=== PATIENT | male | born 1950 | race Caucasian/White ===

== ENCOUNTER 2021-06-09 16:01 | Inpatient (IN) ==
[2021-06-09] MEDS ORDERED: DEXAMETHASONE 4 MG/1 ML VIAL IV STA (17:03)
[2021-06-09] MEDS ORDERED: cefTRIAXone 1,000 MG in SODIUM CHLORIDE 0.9% 100 ML IV STA (17:03)
[2021-06-09] MEDS ORDERED: SODIUM CHLORIDE 0.9% 1,000 ML IV STA (17:03)
[2021-06-09 17:27] LABS: Basophils % 0.2 % (0.0-0.8); Hematocrit 41.8 VOL% (42.0-52.0); Hemoglobin 13.8 GM/DL (14.0-18.0); Immature Granulocytes % 0.8 %; Immature Granulocytes Absolute 0.04 #; Lymphocytes # 0.9 10*3/uL (1.4-4.0); Lymphocytes % 19.1 % (21.2-54.2); Mean Corpuscular Volume 87.4 FL (87-102); Mean Platelet Volume 10.8 FL (9.6-12.0); Monocytes % 9.7 % (1.7-12.7); Neutrophils % 70.2 % (38.7-73.9); Platelet Count 170 T/CUMM (130-400); Red Blood Count 4.78 MC/CUMM (3.8-5.5); Red Cell Distribution Width 13.7 % (9.3-17.3); White Blood Count 4.7 T/CUMM (4-12)
[2021-06-09 17:55] LABS: Alanine Aminotransferase 44 U/L (16-61); Albumin 2.9 G/DL (3.4-5.0); Alkaline Phosphatase 54 U/L (45-117); Aspartate Amino Transferase 60 U/L (0-37); Blood Urea Nitrogen 17 MG/DL (7-18); Calcium 8.4 MG/DL (8.5-10.1); Carbon Dioxide 28 MMOL/L (21-32); Estimated Glom Filtration Rate 101 ML/MIN; Ferritin 272.6 ng/ml (26-388); Glucose 161 MG/DL (74-106); Potassium 3.2 MMOL/L (3.5-5.1); Sodium 136 MMOL/L (136-145); Total Protein 6.8 G/DL (6.4-8.2)
[2021-06-09 18:41] LABS: Bilirubin,Urine Negative (Negative); Blood, Urine Negative (Negative); Glucose,Urine (UA) 50 mg/dL (Negative); Ketones,Urine 20 mg/dL (Negative); Mucus,Urine Moderate /LPF (Occasional); Nitrite,Urine Negative (Negative); Protein,Urine 30 MG/DL; RBC,Urine <1 /HPF (0-4); Squamous Epithelial Cell,Urine Occasional /HPF (0-10); Urine Appearance CLEAR (Clear); Urine Color Amber (Yellow); Urine Specific Gravity 1.027 (1.001-1.035)
[2021-06-09 18:47] LABS: Barbiturates Screen,Urine Negative (Negative); Benzodiazepines Screen,Urine Negative (Negative); Cannabinoid Screen,Urine Negative (Negative); Opiate Screen,Urine Negative (Negative); Phencyclidine Screen,Urine Negative (Negative)
[2021-06-09 18:58] LABS: Lactic Acid 1.3 MMOL/L (0.4-2.0)
[2021-06-09] MEDS ORDERED: DEXTROSE 50% 25 GM/50 ML VIAL IV PRN (19:02)
[2021-06-09] MEDS ORDERED: GLUCAGON 1 MG VIAL IM PRN (19:02)
[2021-06-09] MEDS ORDERED: AZITHROMYCIN INJ 500 MG in SODIUM CHLORIDE 0.9% 250 ML IV ONE (21:00)
[2021-06-09] MEDS: ASCORBIC ACID 500 MG TABLET PO SCH (21:42)
[2021-06-09] MEDS: METOPROLOL TARTRATE 25 MG TABLET PO SCH (21:42)
[2021-06-09] MEDS: ENOXAPARIN 30 MG/0.3 ML SYRINGE SUBCUT SCH (21:42)
[2021-06-10 06:27] LABS: Hematocrit 38.2 VOL% (42.0-52.0); Hemoglobin 12.6 GM/DL (14.0-18.0); Immature Granulocytes % 0.6 %; Immature Granulocytes Absolute 0.02 #; Lymphocytes # 0.6 10*3/uL (1.4-4.0); Lymphocytes % 19.8 % (21.2-54.2); Mean Platelet Volume 10.1 FL (9.6-12.0); Monocytes % 8.4 % (1.7-12.7); Neutrophils % 71.2 % (38.7-73.9); Platelet Count 175 T/CUMM (130-400); Red Blood Count 4.34 MC/CUMM (3.8-5.5); Red Cell Distribution Width 13.7 % (9.3-17.3); White Blood Count 3.1 T/CUMM (4-12)
[2021-06-10 06:52] LABS: Hypochromasia 1+; Lymphocytes 12 % (20-55); Microcytosis 1+; Platelet Estimate Adequate; Segmented Neutrophils 80 % (50-85); Total Cells Counted 100
[2021-06-10 07:14] LABS: Albumin 2.4 G/DL (3.4-5.0); Bilirubin,Total 0.7 MG/DL (0.20-1.00); Calcium 8.1 MG/DL (8.5-10.1); Ferritin 282.8 ng/ml (26-388); Osmolality,Calculated 281.7 MOS/KG (273-304); Potassium 4.1 MMOL/L (3.5-5.1); Risk Ratio 3.73; Thyroid Stimulating Hormone 0.253 uIU/ml (0.358-3.74); Total Protein 6.1 G/DL (6.4-8.2); VLDL Cholesterol 20.6 MG/DL
[2021-06-10] MEDS: DEXAMETHASONE 4 MG/1 ML VIAL IV SCH (10:45)
[2021-06-10] MEDS: METOPROLOL TARTRATE 25 MG TABLET PO SCH ×2 (10:45→21:07)
[2021-06-10] MEDS: ENOXAPARIN 30 MG/0.3 ML SYRINGE SUBCUT SCH ×2 (10:45→21:07)
[2021-06-10] MEDS: ASCORBIC ACID 500 MG TABLET PO SCH ×2 (10:50→21:07)
[2021-06-10] MEDS: cefTRIAXone 1,000 MG in SODIUM CHLORIDE 0.9% 100 ML IV SCH (10:50)
[2021-06-10] MEDS: CHOLECALCIFEROL 1,000 UNIT TABLET PO SCH (10:50)
[2021-06-10] MEDS: ZINC GLUCONATE 50 MG TABLET PO SCH (10:50)
[2021-06-10] MEDS ORDERED: REMDESIVIR 200 MG in SODIUM CHLORIDE 0.9% 210 ML IV ONE (11:00)
[2021-06-10] MEDS: SIMVASTATIN 20 MG TABLET PO SCH (21:07)
[2021-06-11] MEDS: ASPIRIN CHEW 81 MG TABLET PO SCH (09:00)
[2021-06-11] MEDS: cefTRIAXone 1,000 MG in SODIUM CHLORIDE 0.9% 100 ML IV SCH (09:00)
[2021-06-11] MEDS: ZINC GLUCONATE 50 MG TABLET PO SCH (09:00)
[2021-06-11] MEDS: METOPROLOL TARTRATE 25 MG TABLET PO SCH ×2 (09:00→21:45)
[2021-06-11] MEDS: CHOLECALCIFEROL 1,000 UNIT TABLET PO SCH (09:00)
[2021-06-11] MEDS: ASCORBIC ACID 500 MG TABLET PO SCH ×2 (09:00→21:45)
[2021-06-11] MEDS: DEXAMETHASONE 4 MG/1 ML VIAL IV SCH (09:01)
[2021-06-11] MEDS: ENOXAPARIN 30 MG/0.3 ML SYRINGE SUBCUT SCH ×2 (09:01→21:45)
[2021-06-11] MEDS: methylPREDNISolone SOD SUC 40 MG/1 ML VIAL IV SCH ×2 (11:20→21:47)
[2021-06-11] MEDS: REMDESIVIR 100 MG in SODIUM CHLORIDE 0.9% 100 ML IV SCH (11:20)
[2021-06-11] MEDS: ALBUTEROL INHALER 18 GM INH SCH ×2 (12:13→23:09)
[2021-06-11] MEDS: SIMVASTATIN 20 MG TABLET PO SCH (21:45)
[2021-06-12] MEDS: ALBUTEROL INHALER 18 GM INH SCH ×4 (02:02→18:22)
[2021-06-12] MEDS: METOPROLOL TARTRATE 25 MG TABLET PO SCH ×2 (09:12→21:10)
[2021-06-12] MEDS: CHOLECALCIFEROL 1,000 UNIT TABLET PO SCH (09:12)
[2021-06-12] MEDS: CITALOPRAM 20 MG TABLET PO SCH (09:12)
[2021-06-12] MEDS: ASCORBIC ACID 500 MG TABLET PO SCH ×2 (09:12→21:10)
[2021-06-12] MEDS: ZINC GLUCONATE 50 MG TABLET PO SCH (09:12)
[2021-06-12] MEDS: cefTRIAXone 1,000 MG in SODIUM CHLORIDE 0.9% 100 ML IV SCH (09:13)
[2021-06-12] MEDS: methylPREDNISolone SOD SUC 40 MG/1 ML VIAL IV SCH ×2 (09:13→21:10)
[2021-06-12] MEDS: ENOXAPARIN 30 MG/0.3 ML SYRINGE SUBCUT SCH ×2 (09:13→21:10)
[2021-06-12] MEDS: ASPIRIN CHEW 81 MG TABLET PO SCH (09:13)
[2021-06-12] MEDS: REMDESIVIR 100 MG in SODIUM CHLORIDE 0.9% 100 ML IV SCH (10:38)
[2021-06-12] MEDS: MAGNESIUM CHLORIDE 64 MG TABLET PO SCH (10:38)
[2021-06-12] MEDS: SIMVASTATIN 20 MG TABLET PO SCH (21:10)
[2021-06-12] MEDS: INSULIN REGULAR 100 UNIT/ML SUBCUT SCH (23:16)
[2021-06-13] MEDS: ALBUTEROL INHALER 18 GM INH SCH ×4 (01:28→21:40)
[2021-06-13] MEDS: LORazepam 2 MG/1 ML VIAL IV PRN ×2 (03:17→23:26)
[2021-06-13 05:09] LABS: Basophils % 0.1 % (0.0-0.8); Hematocrit 39.7 VOL% (42.0-52.0); Immature Granulocytes % 0.9 %; Immature Granulocytes Absolute 0.07 #; Lymphocytes # 0.8 10*3/uL (1.4-4.0); Lymphocytes % 10.2 % (21.2-54.2); Mean Corpuscular HGB Conc 32.7 GM/DL (32-36); Mean Corpuscular Volume 90.4 FL (87-102); Mean Platelet Volume 11.1 FL (9.6-12.0); Monocytes % 8.8 % (1.7-12.7); Platelet Count 223 T/CUMM (130-400); Red Blood Count 4.39 MC/CUMM (3.8-5.5); Red Cell Distribution Width 13.5 % (9.3-17.3); White Blood Count 7.4 T/CUMM (4-12)
[2021-06-13 05:34] LABS: Calcium 8.8 MG/DL (8.5-10.1); Osmolality,Calculated 291.4 MOS/KG (273-304); Potassium 3.7 MMOL/L (3.5-5.1)
[2021-06-13 07:16] LABS: Lymphocytes 7 % (20-55); Segmented Neutrophils 82 % (50-85); Total Cells Counted 100
[2021-06-13 07:17] LABS: Platelet Estimate Adequate
[2021-06-13] MEDS ORDERED: INSULIN REGULAR 100 UNIT/ML SUBCUT SCH (07:30)
[2021-06-13] MEDS: ZINC GLUCONATE 50 MG TABLET PO SCH (09:19)
[2021-06-13] MEDS: MAGNESIUM CHLORIDE 64 MG TABLET PO SCH (09:19)
[2021-06-13] MEDS: CHOLECALCIFEROL 1,000 UNIT TABLET PO SCH (09:19)
[2021-06-13] MEDS: ASCORBIC ACID 500 MG TABLET PO SCH ×2 (09:19→21:41)
[2021-06-13] MEDS: CITALOPRAM 20 MG TABLET PO SCH (09:19)
[2021-06-13] MEDS: ASPIRIN CHEW 81 MG TABLET PO SCH (09:19)
[2021-06-13] MEDS: INSULIN REGULAR 100 UNIT/ML SUBCUT SCH ×4 (09:20→21:40)
[2021-06-13] MEDS: cefTRIAXone 1,000 MG in SODIUM CHLORIDE 0.9% 100 ML IV SCH (09:20)
[2021-06-13] MEDS: ENOXAPARIN 30 MG/0.3 ML SYRINGE SUBCUT SCH ×2 (09:20→21:41)
[2021-06-13] MEDS: methylPREDNISolone SOD SUC 40 MG/1 ML VIAL IV SCH ×2 (09:21→21:41)
[2021-06-13 09:32] LABS: ABG Base Excess 7.5 MMOL/L (-2.5-2.5); ABG HCO3 31.4 MMOL/L (20-26); ABG Oxygen Saturation 91.5 % (95-100); ABG PCO2 41.7 MM HG (35-48); ABG PH 7.495 (7.35-7.45); ABG PO2 64.5 MM HG (80-95); ABG TCO2 32.7 MMOL/L (23-27)
[2021-06-13] MEDS: METOPROLOL TARTRATE 25 MG TABLET PO SCH ×2 (09:36→21:41)
[2021-06-13] MEDS ORDERED: MAGNESIUM SULF RIDER 2 GM/50 ML PREMIX IV PRN (10:00)
[2021-06-13] MEDS ORDERED: MAGNESIUM SULF RIDER 4 GM/100 ML PREMIX IV PRN (10:00)
[2021-06-13] MEDS: REMDESIVIR 100 MG in SODIUM CHLORIDE 0.9% 100 ML IV SCH (12:17)
[2021-06-13] MEDS: SIMVASTATIN 20 MG TABLET PO SCH (21:41)
[2021-06-14] MEDS: ALBUTEROL INHALER 18 GM INH SCH ×4 (02:19→21:01)
[2021-06-14] MEDS: ENOXAPARIN 30 MG/0.3 ML SYRINGE SUBCUT SCH ×2 (10:00→21:01)
[2021-06-14] MEDS: MAGNESIUM CHLORIDE 64 MG TABLET PO SCH (10:01)
[2021-06-14] MEDS: CHOLECALCIFEROL 1,000 UNIT TABLET PO SCH (10:01)
[2021-06-14] MEDS: cefTRIAXone 1,000 MG in SODIUM CHLORIDE 0.9% 100 ML IV SCH (10:01)
[2021-06-14] MEDS: ZINC GLUCONATE 50 MG TABLET PO SCH (10:01)
[2021-06-14] MEDS: methylPREDNISolone SOD SUC 40 MG/1 ML VIAL IV SCH ×2 (10:01→21:05)
[2021-06-14] MEDS: METOPROLOL TARTRATE 25 MG TABLET PO SCH ×2 (10:01→21:01)
[2021-06-14] MEDS: ASCORBIC ACID 500 MG TABLET PO SCH ×2 (10:02→21:01)
[2021-06-14] MEDS: CITALOPRAM 20 MG TABLET PO SCH (10:02)
[2021-06-14] MEDS: ASPIRIN CHEW 81 MG TABLET PO SCH (10:02)
[2021-06-14] MEDS: INSULIN REGULAR 100 UNIT/ML SUBCUT SCH ×4 (10:11→21:01)
[2021-06-14] MEDS: REMDESIVIR 100 MG in SODIUM CHLORIDE 0.9% 100 ML IV SCH (11:21)
[2021-06-14] MEDS ORDERED: INSULIN NPH 100 UNIT/ML SUBCUT ONE (12:03)
[2021-06-14] MEDS ORDERED: INSULIN GLARGINE 100 UNIT/ML SUBCUT SCH (21:00)
[2021-06-14] MEDS: SIMVASTATIN 20 MG TABLET PO SCH (21:01)
[2021-06-14] MEDS: LORazepam 2 MG/1 ML VIAL IV PRN (21:51)
[2021-06-15] MEDS: ALBUTEROL INHALER 18 GM INH SCH ×3 (01:52→13:55)
[2021-06-15] MEDS: cefTRIAXone 1,000 MG in SODIUM CHLORIDE 0.9% 100 ML IV SCH (10:26)
[2021-06-15] MEDS: CHOLECALCIFEROL 1,000 UNIT TABLET PO SCH (10:27)
[2021-06-15] MEDS: ZINC GLUCONATE 50 MG TABLET PO SCH (10:27)
[2021-06-15] MEDS: MAGNESIUM CHLORIDE 64 MG TABLET PO SCH (10:27)
[2021-06-15] MEDS: METOPROLOL TARTRATE 25 MG TABLET PO SCH (10:27)
[2021-06-15] MEDS: ASCORBIC ACID 500 MG TABLET PO SCH ×2 (10:27→21:40)
[2021-06-15] MEDS: ASPIRIN CHEW 81 MG TABLET PO SCH (10:27)
[2021-06-15] MEDS: CITALOPRAM 20 MG TABLET PO SCH (10:27)
[2021-06-15] MEDS: ENOXAPARIN 30 MG/0.3 ML SYRINGE SUBCUT SCH ×2 (10:28→21:40)
[2021-06-15] MEDS: methylPREDNISolone SOD SUC 40 MG/1 ML VIAL IV SCH (10:28)
[2021-06-15] MEDS: INSULIN REGULAR 100 UNIT/ML SUBCUT SCH ×4 (10:28→21:38)
[2021-06-15] MEDS ORDERED: FUROSEMIDE 40 MG/4 ML VIAL IV ONE (11:14)
[2021-06-15] MEDS ORDERED: ALBUTEROL INHALER 18 GM INH PRN (17:53)
[2021-06-15] MEDS ORDERED: POTASSIUM CHLORIDE 20 MEQ TABLET PO ONE (17:57)
[2021-06-15] MEDS: LORazepam 2 MG/1 ML VIAL IV PRN (18:26)
[2021-06-15] MEDS ORDERED: METOPROLOL TARTRATE 25 MG TABLET PO SCH (21:00)
[2021-06-15] MEDS ORDERED: INSULIN GLARGINE 100 UNIT/ML SUBCUT SCH (21:00)
[2021-06-15] MEDS: predniSONE 20 MG TABLET PO SCH (21:40)
[2021-06-15] MEDS: SIMVASTATIN 20 MG TABLET PO SCH (21:40)
[2021-06-16 04:31] LABS: Basophils % 0.3 % (0.0-0.8); Hematocrit 40.4 VOL% (42.0-52.0); Hemoglobin 13.6 GM/DL (14.0-18.0); Immature Granulocytes % 1.3 %; Lymphocytes # 0.7 10*3/uL (1.4-4.0); Lymphocytes % 9.2 % (21.2-54.2); Mean Corpuscular HGB Conc 33.7 GM/DL (32-36); Mean Corpuscular Volume 86.9 FL (87-102); Mean Platelet Volume 11.5 FL (9.6-12.0); Neutrophils % 82.2 % (38.7-73.9); Platelet Count 338 T/CUMM (130-400); Red Blood Count 4.65 MC/CUMM (3.8-5.5); Red Cell Distribution Width 13.2 % (9.3-17.3); White Blood Count 7.5 T/CUMM (4-12)
[2021-06-16 05:06] LABS: Calcium 9.2 MG/DL (8.5-10.1); Osmolality,Calculated 298.4 MOS/KG (273-304); Potassium 3.7 MMOL/L (3.5-5.1)
[2021-06-16] MEDS ORDERED: POTASSIUM CHLORIDE 20 MEQ TABLET PO ONE (09:00)
[2021-06-16] MEDS ORDERED: METOPROLOL TARTRATE 50 MG TABLET PO SCH (09:00)
[2021-06-16] MEDS: predniSONE 20 MG TABLET PO SCH ×2 (09:52→20:41)
[2021-06-16] MEDS: VERAPAMIL SR 120 MG TABLET PO SCH ×2 (09:52→20:40)
[2021-06-16] MEDS: MAGNESIUM CHLORIDE 64 MG TABLET PO SCH (09:52)
[2021-06-16] MEDS: METOPROLOL TARTRATE 25 MG TABLET PO SCH ×2 (09:52→20:41)
[2021-06-16] MEDS: ASCORBIC ACID 500 MG TABLET PO SCH ×2 (09:52→20:41)
[2021-06-16] MEDS: cefTRIAXone 1,000 MG in SODIUM CHLORIDE 0.9% 100 ML IV SCH (09:52)
[2021-06-16] MEDS: INSULIN REGULAR 100 UNIT/ML SUBCUT SCH ×4 (09:52→20:41)
[2021-06-16] MEDS: CITALOPRAM 20 MG TABLET PO SCH (09:52)
[2021-06-16] MEDS: ZINC GLUCONATE 50 MG TABLET PO SCH (09:52)
[2021-06-16] MEDS: ENOXAPARIN 30 MG/0.3 ML SYRINGE SUBCUT SCH ×2 (09:52→20:41)
[2021-06-16] MEDS: ASPIRIN CHEW 81 MG TABLET PO SCH (09:52)
[2021-06-16] MEDS: CHOLECALCIFEROL 1,000 UNIT TABLET PO SCH (09:52)
[2021-06-16] MEDS: ROSUVASTATIN 20 MG TABLET PO SCH (20:40)
[2021-06-16] MEDS: INSULIN GLARGINE 100 UNIT/ML SUBCUT SCH (20:40)
[2021-06-16] MEDS: LORazepam 2 MG/1 ML VIAL IV PRN (22:54)
[2021-06-17 05:36] LABS: Basophils % 0.1 % (0.0-0.8); Eosinophils % 0.4 % (0.00-10.9); Hematocrit 39.6 VOL% (42.0-52.0); Immature Granulocytes % 1.8 %; Immature Granulocytes Absolute 0.14 #; Lymphocytes # 0.9 10*3/uL (1.4-4.0); Lymphocytes % 11.1 % (21.2-54.2); Mean Corpuscular HGB Conc 32.8 GM/DL (32-36); Mean Platelet Volume 11.1 FL (9.6-12.0); Monocytes % 6.1 % (1.7-12.7); Neutrophils % 80.5 % (38.7-73.9); Platelet Count 355 T/CUMM (130-400); Red Cell Distribution Width 13.4 % (9.3-17.3); White Blood Count 7.8 T/CUMM (4-12)
[2021-06-17 06:05] LABS: Calcium 8.7 MG/DL (8.5-10.1); Osmolality,Calculated 293.4 MOS/KG (273-304); Potassium 3.9 MMOL/L (3.5-5.1)
[2021-06-17 06:19] LABS: Ferritin 146.7 ng/mL (26-388)
[2021-06-17] MEDS ORDERED: METOPROLOL TARTRATE 25 MG TABLET PO ONE (09:21)
[2021-06-17] MEDS: ENOXAPARIN 30 MG/0.3 ML SYRINGE SUBCUT SCH ×2 (10:16→21:20)
[2021-06-17] MEDS: MAGNESIUM CHLORIDE 64 MG TABLET PO SCH (10:16)
[2021-06-17] MEDS: INSULIN REGULAR 100 UNIT/ML SUBCUT SCH ×4 (10:16→21:20)
[2021-06-17] MEDS: VERAPAMIL SR 120 MG TABLET PO SCH ×2 (10:16→21:21)
[2021-06-17] MEDS: ZINC GLUCONATE 50 MG TABLET PO SCH (10:17)
[2021-06-17] MEDS: CITALOPRAM 20 MG TABLET PO SCH (10:17)
[2021-06-17] MEDS: CHOLECALCIFEROL 1,000 UNIT TABLET PO SCH (10:17)
[2021-06-17] MEDS: ASCORBIC ACID 500 MG TABLET PO SCH ×2 (10:17→21:22)
[2021-06-17] MEDS: predniSONE 20 MG TABLET PO SCH ×2 (10:18→21:25)
[2021-06-17] MEDS: METOPROLOL TARTRATE 25 MG TABLET PO SCH (10:38)
[2021-06-17] MEDS: ASPIRIN CHEW 81 MG TABLET PO SCH (10:38)
[2021-06-17] MEDS: METOPROLOL TARTRATE 50 MG TABLET PO SCH (21:21)
[2021-06-17] MEDS: INSULIN GLARGINE 100 UNIT/ML SUBCUT SCH (21:21)
[2021-06-17] MEDS: ROSUVASTATIN 20 MG TABLET PO SCH (21:22)
[2021-06-18 06:31] LABS: Basophils % 0.1 % (0.0-0.8); Eosinophils % 0.2 % (0.00-10.9); Hematocrit 40.7 VOL% (42.0-52.0); Hemoglobin 13.4 GM/DL (14.0-18.0); Immature Granulocytes % 1.5 %; Immature Granulocytes Absolute 0.14 #; Lymphocytes # 1.2 10*3/uL (1.4-4.0); Lymphocytes % 12.7 % (21.2-54.2); Mean Corpuscular HGB Conc 32.9 GM/DL (32-36); Mean Corpuscular Volume 87.5 FL (87-102); Mean Platelet Volume 11.5 FL (9.6-12.0); Monocytes % 7.2 % (1.7-12.7); Neutrophils % 78.3 % (38.7-73.9); Platelet Count 343 T/CUMM (130-400); Red Blood Count 4.65 MC/CUMM (3.8-5.5); Red Cell Distribution Width 13.5 % (9.3-17.3); White Blood Count 9.5 T/CUMM (4-12)
[2021-06-18 07:07] LABS: Ferritin 147.6 ng/mL (26-388)
[2021-06-18] MEDS: MAGNESIUM CHLORIDE 64 MG TABLET PO SCH (10:00)
[2021-06-18] MEDS: predniSONE 20 MG TABLET PO SCH ×2 (10:00→21:54)
[2021-06-18] MEDS: ASPIRIN EC 325 MG TABLET PO SCH (10:00)
[2021-06-18] MEDS: VERAPAMIL SR 120 MG TABLET PO SCH ×2 (10:01→21:53)
[2021-06-18] MEDS: CHOLECALCIFEROL 1,000 UNIT TABLET PO SCH (10:01)
[2021-06-18] MEDS: ENOXAPARIN 30 MG/0.3 ML SYRINGE SUBCUT SCH ×2 (10:01→21:55)
[2021-06-18] MEDS: INSULIN REGULAR 100 UNIT/ML SUBCUT SCH ×4 (10:02→21:55)
[2021-06-18] MEDS: ZINC GLUCONATE 50 MG TABLET PO SCH (10:02)
[2021-06-18] MEDS: ASCORBIC ACID 500 MG TABLET PO SCH ×2 (10:02→21:54)
[2021-06-18] MEDS: METOPROLOL TARTRATE 50 MG TABLET PO SCH ×2 (10:03→21:54)
[2021-06-18] MEDS: CITALOPRAM 20 MG TABLET PO SCH (10:03)
[2021-06-18] MEDS: ROSUVASTATIN 20 MG TABLET PO SCH (21:53)
[2021-06-18] MEDS: INSULIN GLARGINE 100 UNIT/ML SUBCUT SCH (21:55)
[2021-06-19 06:37] LABS: Basophils % 0.1 % (0.0-0.8); Hemoglobin 13.4 GM/DL (14.0-18.0); Immature Granulocytes % 1.7 %; Immature Granulocytes Absolute 0.16 #; Lymphocytes # 1.1 10*3/uL (1.4-4.0); Lymphocytes % 11.9 % (21.2-54.2); Mean Corpuscular HGB Conc 32.7 GM/DL (32-36); Mean Corpuscular Volume 87.4 FL (87-102); Mean Platelet Volume 11.2 FL (9.6-12.0); Monocytes % 4.8 % (1.7-12.7); Neutrophils % 81.5 % (38.7-73.9); Platelet Count 362 T/CUMM (130-400); Red Blood Count 4.69 MC/CUMM (3.8-5.5); Red Cell Distribution Width 13.6 % (9.3-17.3); White Blood Count 9.4 T/CUMM (4-12)
[2021-06-19 07:06] LABS: Calcium 8.9 MG/DL (8.5-10.1); Osmolality,Calculated 290.4 MOS/KG (273-304); Potassium 3.8 MMOL/L (3.5-5.1)
[2021-06-19] MEDS: ZINC GLUCONATE 50 MG TABLET PO SCH (09:00)
[2021-06-19] MEDS: VERAPAMIL SR 120 MG TABLET PO SCH (09:00)
[2021-06-19] MEDS: ASPIRIN EC 325 MG TABLET PO SCH (09:00)
[2021-06-19] MEDS: predniSONE 20 MG TABLET PO SCH (09:00)
[2021-06-19] MEDS: ASCORBIC ACID 500 MG TABLET PO SCH (09:00)
[2021-06-19] MEDS: MAGNESIUM CHLORIDE 64 MG TABLET PO SCH (09:00)
[2021-06-19] MEDS: CITALOPRAM 20 MG TABLET PO SCH (09:00)
[2021-06-19] MEDS: CHOLECALCIFEROL 1,000 UNIT TABLET PO SCH (09:00)
[2021-06-19] MEDS: METOPROLOL TARTRATE 50 MG TABLET PO SCH (09:00)
[2021-06-19] MEDS: ENOXAPARIN 30 MG/0.3 ML SYRINGE SUBCUT SCH (09:01)
[2021-06-19] MEDS: INSULIN REGULAR 100 UNIT/ML SUBCUT SCH ×2 (09:13→12:58)
[2021-06-19 12:31] VITALS: BP 134/73
== END 2021-06-19 13:30 | DRG 177 ==
LOC: N.ED 16:01 → SUATTDRO 19:02 → N.EDINP 19:02 → N.2E 21:27
PROVIDERS: ADMIT Internal Medicine; ATTEND Internal Medicine